=== PATIENT | female | born 1935 | race Caucasian/White ===

== ENCOUNTER 2020-11-06 01:07 | Inpatient (IN) ==
[2020-11-06] MEDS ORDERED: Naloxone 0.4 MG/ML INJ IVP PRN (03:02)
[2020-11-06] MEDS ORDERED: 0.9 % Sodium Chloride 1,000 ML IVC SCH (03:15)
[2020-11-06] MEDS: Ondansetron 4 MG/2 ML VIAL IVP PRN ×2 (03:22→14:52)
[2020-11-06 04:52] LABS: Bacteria,Urine Few per hpf (None-Few); Bilirubin,Urine Negative (Negative); Blood,Urine Negative (Negative); Clarity,Urine Turbid (Clear); Color,Urine Light-Yellow (Yellow); Glucose,Urine (UA) 50 mg/dL (Normal); Ketones,Urine Negative (Negative); Leukocyte Esterase,Urine Moderate (Negative); Mucus,Urine Few per lpf (None-Few); Nitrite,Urine Negative (Negative); PH,Urine 7.5 pH Units (5.0-8.0); Protein,Urine 50 mg/dL (Neg-Trace); RBC,Urine 15-30 per hpf (0-3); Specific Gravity,Urine 1.014 (1.010-1.025); Urobilinogen,Urine Normal (Normal); WBC,Urine 30-50 per hpf (0-3)
[2020-11-06 06:30] LABS: Basophils % 0.4 %; Eosinophils # 0.1 K/mcL (0.0-0.6); Eosinophils % 0.5 %; Hematocrit 35.8 % (35.3-44.9); Hemoglobin 12.4 g/dL (11.5-15.4); Immature Granulocytes % 0.8 % (0-4); Lymphocytes # 1.2 K/mcL (0.6-4.6); Lymphocytes % 13.4 %; Mean Corpuscular HGB Conc 34.6 g/dL (31.6-35.5); Mean Corpuscular Hemoglobin 31.4 pg (28.0-33.3); Mean Corpuscular Volume 90.6 fL (83.0-100.0); Mean Platelet Volume 8.3 fL (9.4-12.4); Monocytes # 0.5 K/mcL (0.0-1.3); Monocytes % 5.1 %; Neutrophils # 7.3 K/mcL (1.6-8.9); Platelet Count 194 K/mcL (140-400); Red Blood Count 3.95 M/mcL (3.82-4.97); Red Cell Distribution Width 15.9 % (11.5-14.5); Segmented Neutrophils % 79.8 %; White Blood Count 9.1 K/mcL (4.3-11.1)
[2020-11-06 06:43] LABS: INR 1.1; Prothrombin Time 12.7 Seconds (9.4-12.1)
[2020-11-06 06:46] LABS: Activated Partial Thrombo Time 31.8 Seconds (26.0-36.0)
[2020-11-06 07:50] LABS: Alanine Aminotransferase 13 Units/L (7-52); Albumin 3.6 g/dL (3.5-5.7); Albumin/Globulin Ratio 1.1 (1.1-2.2); Alkaline Phosphatase 67 Units/L (34-104); Aspartate Amino Transferase 21 Units/L (13-39); BUN/Creatinine Ratio 20 (6-26); Bilirubin,Total 0.8 mg/dL (0.3-1.0); Blood Urea Nitrogen 9 mg/dL (8-23); Calcium 8.8 mg/dL (8.6-10.3); Carbon Dioxide 25 mEq/L (23-29); Chloride 96 mEq/L (98-107); Globulin 3.4 g/dL (2.4-3.5); Glucose 151 mg/dL (70-105); Magnesium 1.6 mg/dL (1.6-2.6); Osmolality,Calculated 268 (280-300); Potassium 4.1 mEq/L (3.5-5.1); Sodium 128 mEq/L (136-145); Troponin I < 0.03 ng/mL (< 0.04); eGFR For African Americans > 60 (> 60); eGFR For Non-African Americans > 60 (> 60)
[2020-11-06] MEDS: cefTRIAXone 1,000 MG in 0.9 % Sodium Chloride Mini Bag 100 ML IVPB SCH (07:51)
[2020-11-06] MEDS ORDERED: Dextrose Gel 15 GM/37.5 ML TUBE PO PRN ×2 (09:00)
[2020-11-06] MEDS ORDERED: D5% in Water 1,000 ML IVC PRN (09:00)
[2020-11-06] MEDS ORDERED: *HR* Dextrose 50 % in Water (Vial) 50 ML VIAL IVP PRN (09:00)
[2020-11-06] MEDS ORDERED: Perflutren Lipid Microsphere 1.3 ML in 0.9 % Sodium Chloride 8.7 ML IVP PRN (12:36)
[2020-11-06] MEDS: Insulin LISPRO 300 UNITS/3 ML VIAL SUBQ SCH ×2 (12:51→17:26)
[2020-11-06 13:05] LABS: Basophils # 0.1 K/mcL (0.0-0.2); Basophils % 0.6 %; Eosinophils # 0.1 K/mcL (0.0-0.6); Eosinophils % 1.2 %; Hematocrit 34.1 % (35.3-44.9); Hemoglobin 11.8 g/dL (11.5-15.4); Immature Granulocytes % 1.5 % (0-4); Lymphocytes # 1.5 K/mcL (0.6-4.6); Lymphocytes % 17.4 %; Mean Corpuscular HGB Conc 34.6 g/dL (31.6-35.5); Mean Corpuscular Hemoglobin 31.5 pg (28.0-33.3); Mean Corpuscular Volume 90.9 fL (83.0-100.0); Mean Platelet Volume 8.9 fL (9.4-12.4); Monocytes # 0.4 K/mcL (0.0-1.3); Neutrophils # 6.4 K/mcL (1.6-8.9); Platelet Count 176 K/mcL (140-400); Red Blood Count 3.75 M/mcL (3.82-4.97); Red Cell Distribution Width 15.8 % (11.5-14.5); Segmented Neutrophils % 74.3 %; White Blood Count 8.6 K/mcL (4.3-11.1)
[2020-11-06 14:45] LABS: BUN/Creatinine Ratio 22 (6-26); Blood Urea Nitrogen 8 mg/dL (8-23); Calcium 8.5 mg/dL (8.6-10.3); Carbon Dioxide 15 mEq/L (23-29); Chloride 98 mEq/L (98-107); Glucose 127 mg/dL (70-105); Osmolality,Calculated 264 (280-300); Potassium 4.3 mEq/L (3.5-5.1); Sodium 127 mEq/L (136-145); eGFR For African Americans > 60 (> 60); eGFR For Non-African Americans > 60 (> 60)
[2020-11-06] MEDS: Metoprolol XL (24 HR) Succ 25 MG TAB.ER.24H PO SCH (14:46)
[2020-11-06 15:15] LABS: Alanine Aminotransferase 12 Units/L (7-52); Albumin 3.6 g/dL (3.5-5.7); Alkaline Phosphatase 67 Units/L (34-104); Aspartate Amino Transferase 21 Units/L (13-39); Bilirubin,Direct 0.2 mg/dL (0.0-0.2); Bilirubin,Indirect 0.6 mg/dL (0.0-1.0); Bilirubin,Total 0.8 mg/dL (0.3-1.0); Globulin 3.5 g/dL (2.4-3.5); Total Protein 7.1 g/dL (6.4-8.9); Troponin I < 0.03 ng/mL (< 0.04)
[2020-11-06 15:28] LABS: Thyroid Stimulating Hormone 0.578 mcIU/mL (0.340-5.600)
[2020-11-06 21:05] LABS: Basophils # 0.1 K/mcL (0.0-0.2); Basophils % 1.1 %; Eosinophils # 0.2 K/mcL (0.0-0.6); Eosinophils % 2.5 %; Hematocrit 32.2 % (35.3-44.9); Hemoglobin 10.8 g/dL (11.5-15.4); Immature Granulocytes % 0.7 % (0-4); Lymphocytes # 1.5 K/mcL (0.6-4.6); Lymphocytes % 19.4 %; Mean Corpuscular HGB Conc 33.5 g/dL (31.6-35.5); Mean Corpuscular Hemoglobin 30.9 pg (28.0-33.3); Mean Corpuscular Volume 92.3 fL (83.0-100.0); Mean Platelet Volume 8.3 fL (9.4-12.4); Monocytes # 0.5 K/mcL (0.0-1.3); Monocytes % 6.2 %; Neutrophils # 5.3 K/mcL (1.6-8.9); Platelet Count 195 K/mcL (140-400); Red Blood Count 3.49 M/mcL (3.82-4.97); Red Cell Distribution Width 15.9 % (11.5-14.5); Segmented Neutrophils % 70.1 %; White Blood Count 7.6 K/mcL (4.3-11.1)
[2020-11-07] MEDS: Insulin LISPRO 300 UNITS/3 ML VIAL SUBQ SCH ×5 (01:34→23:50)
[2020-11-07] MEDS: cefTRIAXone 1,000 MG in 0.9 % Sodium Chloride Mini Bag 100 ML IVPB SCH (07:20)
[2020-11-07] MEDS: Metoprolol XL (24 HR) Succ 25 MG TAB.ER.24H PO SCH (07:21)
[2020-11-07 10:31] LABS: BUN/Creatinine Ratio 28 (6-26); Blood Urea Nitrogen 14 mg/dL (8-23); Calcium 8.7 mg/dL (8.6-10.3); Carbon Dioxide 28 mEq/L (23-29); Chloride 96 mEq/L (98-107); Glucose 127 mg/dL (70-105); Osmolality,Calculated 264 (280-300); Potassium 4.2 mEq/L (3.5-5.1); Sodium 126 mEq/L (136-145); eGFR For African Americans > 60 (> 60); eGFR For Non-African Americans > 60 (> 60)
[2020-11-07] MEDS ORDERED: Povidone-Iodine 45 ML, Sodium Chloride IRRigation 1,000 ML IR ONE (12:00)
[2020-11-07] MEDS ORDERED: TOTAL JOINT MIXTURE (100ML) INTRAART ONE (12:00)
[2020-11-07] MEDS ORDERED: Ondansetron 4 MG/2 ML VIAL ONE (12:02)
[2020-11-07] MEDS ORDERED: Lidocaine HCL 4 ML Topical Solution (Laryng-O-Jet Kit Sterile Pak) TP ONE (12:02)
[2020-11-07] MEDS ORDERED: *HR* FentaNYL (PF) 100 MCG/2 ML VIAL ONE ×2 (12:02→13:51)
[2020-11-07] MEDS ORDERED: *HR* Succinylcholine 200 MG/10 ML VIAL IVP ONE (12:02)
[2020-11-07] MEDS ORDERED: Lidocaine -MPF 2% 2 ML VIAL ONE (12:02)
[2020-11-07] MEDS ORDERED: *HR* Rocuronium Bromide 50 MG/5 ML VIAL ONE (12:02)
[2020-11-07] MEDS ORDERED: *HR* Propofol 200 MG/20 ML VIAL IVP ONE (12:03)
[2020-11-07] MEDS ORDERED: ceFAZolin 2,000 MG in Water for inj. (sterile) 20 ML IVP ONE (13:26)
[2020-11-07] MEDS ORDERED: Tranexamic Acid 1,000 MG/10 ML VIAL ONE (13:28)
[2020-11-07] MEDS ORDERED: Neostigmine Methylsulfate 3 MG/3 ML SYRINGE ONE (14:20)
[2020-11-07] MEDS: CeFAZolin 2 GM/120 ML BAG IVPB SCH (20:39)
[2020-11-08] MEDS: CeFAZolin 2 GM/120 ML BAG IVPB SCH (05:02)
[2020-11-08] MEDS: Insulin LISPRO 300 UNITS/3 ML VIAL SUBQ SCH ×3 (05:14→20:29)
[2020-11-08 06:50] LABS: Hematocrit 25.5 % (35.3-44.9); Mean Corpuscular HGB Conc 34.1 g/dL (31.6-35.5); Mean Corpuscular Hemoglobin 31.6 pg (28.0-33.3); Mean Corpuscular Volume 92.7 fL (83.0-100.0); Mean Platelet Volume 8.7 fL (9.4-12.4); Platelet Count 192 K/mcL (140-400); Red Blood Count 2.75 M/mcL (3.82-4.97); Red Cell Distribution Width 15.9 % (11.5-14.5); White Blood Count 9.3 K/mcL (4.3-11.1)
[2020-11-08 06:51] LABS: Hemoglobin 8.7 g/dL (11.5-15.4)
[2020-11-08 07:03] LABS: BUN/Creatinine Ratio 34 (6-26); Blood Urea Nitrogen 20 mg/dL (8-23); Calcium 8.5 mg/dL (8.6-10.3); Carbon Dioxide 25 mEq/L (23-29); Chloride 98 mEq/L (98-107); Glucose 177 mg/dL (70-105); Osmolality,Calculated 273 (280-300); Potassium 4.8 mEq/L (3.5-5.1); Sodium 128 mEq/L (136-145); eGFR For African Americans > 60 (> 60); eGFR For Non-African Americans > 60 (> 60)
[2020-11-08] MEDS: Metoprolol XL (24 HR) Succ 25 MG TAB.ER.24H PO SCH (09:59)
[2020-11-08] MEDS: cefTRIAXone 1,000 MG in 0.9 % Sodium Chloride Mini Bag 100 ML IVPB SCH (10:00)
[2020-11-08] MEDS: Sennosides/Docusate Sodium TABLET PO SCH ×2 (15:14→20:10)
[2020-11-08] MEDS: polyethylene glycoL 3350 17 GM POWD.PACK PO SCH ×3 (15:14→20:12)
[2020-11-09] MEDS: Metoprolol XL (24 HR) Succ 25 MG TAB.ER.24H PO SCH (07:46)
[2020-11-09] MEDS: polyethylene glycoL 3350 17 GM POWD.PACK PO SCH ×2 (07:46→19:46)
[2020-11-09] MEDS: cefTRIAXone 1,000 MG in 0.9 % Sodium Chloride Mini Bag 100 ML IVPB SCH (07:46)
[2020-11-09] MEDS: Sennosides/Docusate Sodium TABLET PO SCH ×2 (07:46→19:46)
[2020-11-09] MEDS: Insulin LISPRO 300 UNITS/3 ML VIAL SUBQ SCH ×4 (07:47→19:38)
[2020-11-10 08:27] LABS: Hematocrit 21.7 % (35.3-44.9); Mean Corpuscular HGB Conc 32.3 g/dL (31.6-35.5); Mean Platelet Volume 8.5 fL (9.4-12.4); Platelet Count 200 K/mcL (140-400); Red Blood Count 2.26 M/mcL (3.82-4.97); Red Cell Distribution Width 16.1 % (11.5-14.5); White Blood Count 6.5 K/mcL (4.3-11.1)
[2020-11-10 08:50] LABS: BUN/Creatinine Ratio 64 (6-26); Blood Urea Nitrogen 25 mg/dL (8-23); Calcium 8.3 mg/dL (8.6-10.3); Carbon Dioxide 30 mEq/L (23-29); Chloride 100 mEq/L (98-107); Glucose 132 mg/dL (70-105); Osmolality,Calculated 282 (280-300); Potassium 4.4 mEq/L (3.5-5.1); Sodium 133 mEq/L (136-145); eGFR For African Americans > 60 (> 60); eGFR For Non-African Americans > 60 (> 60)
[2020-11-10] MEDS: cefTRIAXone 1,000 MG in 0.9 % Sodium Chloride Mini Bag 100 ML IVPB SCH (09:29)
[2020-11-10] MEDS: Metoprolol XL (24 HR) Succ 25 MG TAB.ER.24H PO SCH (09:29)
[2020-11-10] MEDS: Sennosides/Docusate Sodium TABLET PO SCH ×2 (09:29→20:30)
[2020-11-10] MEDS: polyethylene glycoL 3350 17 GM POWD.PACK PO SCH ×2 (09:29→20:30)
[2020-11-10] MEDS: Insulin LISPRO 300 UNITS/3 ML VIAL SUBQ SCH ×4 (09:31→20:34)
[2020-11-10 15:26] LABS: Hematocrit 20.6 % (35.3-44.9); Hemoglobin 6.9 g/dL (11.5-15.4); Mean Corpuscular HGB Conc 33.5 g/dL (31.6-35.5); Mean Corpuscular Hemoglobin 32.2 pg (28.0-33.3); Mean Corpuscular Volume 96.3 fL (83.0-100.0); Mean Platelet Volume 8.8 fL (9.4-12.4); Platelet Count 207 K/mcL (140-400); Red Blood Count 2.14 M/mcL (3.82-4.97); Red Cell Distribution Width 15.9 % (11.5-14.5); White Blood Count 6.2 K/mcL (4.3-11.1)
[2020-11-10] MEDS ORDERED: 0.9 % Sodium Chloride 250 ML IVC SCH (17:15)
[2020-11-11 01:20] LABS: Hematocrit 26.4 % (35.3-44.9)
[2020-11-11 01:22] LABS: Hemoglobin 8.9 g/dL (11.5-15.4)
[2020-11-11 03:57] VITALS: O2SAT 97
[2020-11-11] MEDS: cefTRIAXone 1,000 MG in 0.9 % Sodium Chloride Mini Bag 100 ML IVPB SCH (06:47)
[2020-11-11 08:17] VITALS: BP 156/75; PULSE 91; TEMP 98
[2020-11-11] MEDS: polyethylene glycoL 3350 17 GM POWD.PACK PO SCH (09:38)
[2020-11-11] MEDS: Sennosides/Docusate Sodium TABLET PO SCH (09:38)
[2020-11-11] MEDS: Insulin LISPRO 300 UNITS/3 ML VIAL SUBQ SCH ×2 (09:39→12:19)
[2020-11-11] MEDS: Metoprolol XL (24 HR) Succ 25 MG TAB.ER.24H PO SCH (09:40)
== END 2020-11-11 13:30 | DRG 481 ==
LOC: 3NENU → SUATTDRO 02:32
PROVIDERS: ADMIT Pharmacist; ATTEND Internal Medicine

== ENCOUNTER 2020-12-18 15:47 | Inpatient (IN) ==
[2020-12-18] MEDS ORDERED: Ondansetron 4 MG/2 ML VIAL IVP PRN (16:52)
[2020-12-18] MEDS ORDERED: Naloxone 0.4 MG/ML INJ IVP PRN (16:52)
[2020-12-18] MEDS: *HR* OxyCODONE Immed Rel 5 MG TABLET PO PRN ×2 (17:17→21:23)
[2020-12-18] MEDS ORDERED: GuaiFENesin Liq 200 MG/10 ML UDC PO PRN (17:50)
[2020-12-18 18:32] LABS: Basophils # 0.1 K/mcL (0.0-0.2); Basophils % 1.2 %; Eosinophils # 0.2 K/mcL (0.0-0.6); Eosinophils % 3.5 %; Hematocrit 35.8 % (35.3-44.9); Hemoglobin 12.1 g/dL (11.5-15.4); Immature Granulocytes % 0.2 % (0-4); Lymphocytes # 1.3 K/mcL (0.6-4.6); Mean Corpuscular HGB Conc 33.8 g/dL (31.6-35.5); Mean Corpuscular Volume 94.7 fL (83.0-100.0); Mean Platelet Volume 7.8 fL (9.4-12.4); Monocytes # 0.3 K/mcL (0.0-1.3); Monocytes % 5.3 %; Neutrophils # 4.2 K/mcL (1.6-8.9); Platelet Count 313 K/mcL (140-400); Red Blood Count 3.78 M/mcL (3.82-4.97); Red Cell Distribution Width 14.2 % (11.5-14.5); Segmented Neutrophils % 68.8 %; White Blood Count 6.1 K/mcL (4.3-11.1)
[2020-12-18 18:50] LABS: Estimated Average Glucose 91 mg/dl; Hemoglobin A1C 4.8 %
[2020-12-18] MEDS: *HR* Heparin 5,000 UNIT/ML VIAL SQ SCH (18:51)
[2020-12-18 18:52] LABS: BUN/Creatinine Ratio 43 (6-26); Blood Urea Nitrogen 20 mg/dL (8-23); Calcium 9.2 mg/dL (8.6-10.3); Carbon Dioxide 31 mEq/L (23-29); Chloride 96 mEq/L (98-107); Glucose 149 mg/dL (70-105); Magnesium 1.9 mg/dL (1.6-2.6); Osmolality,Calculated 275 (280-300); Phosphorous 3.8 mg/dL (2.7-4.5); Potassium 3.7 mEq/L (3.5-5.1); Sodium 130 mEq/L (136-145); eGFR For African Americans > 60 (> 60); eGFR For Non-African Americans > 60 (> 60)
[2020-12-19] MEDS ORDERED: Acetaminophen 325 MG TABLET PO ONE (00:02)
[2020-12-19] MEDS: *HR* Heparin 5,000 UNIT/ML VIAL SQ SCH (03:39)
[2020-12-19] MEDS ORDERED: Povidone-Iodine 45 ML, Sodium Chloride IRRigation 1,000 ML IR ONE (06:00)
[2020-12-19] MEDS ORDERED: TOTAL JOINT MIXTURE (100ML) INTRAART ONE (06:00)
[2020-12-19 06:23] LABS: Basophils # 0.1 K/mcL (0.0-0.2); Basophils % 1.2 %; Eosinophils # 0.2 K/mcL (0.0-0.6); Eosinophils % 3.2 %; Hematocrit 34.5 % (35.3-44.9); Hemoglobin 11.5 g/dL (11.5-15.4); Immature Granulocytes % 0.4 % (0-4); Lymphocytes % 29.2 %; Mean Corpuscular HGB Conc 33.3 g/dL (31.6-35.5); Mean Corpuscular Hemoglobin 31.5 pg (28.0-33.3); Mean Corpuscular Volume 94.5 fL (83.0-100.0); Mean Platelet Volume 8.2 fL (9.4-12.4); Monocytes # 0.4 K/mcL (0.0-1.3); Monocytes % 6.1 %; Neutrophils # 4.1 K/mcL (1.6-8.9); Platelet Count 309 K/mcL (140-400); Red Blood Count 3.65 M/mcL (3.82-4.97); Red Cell Distribution Width 14.3 % (11.5-14.5); Segmented Neutrophils % 59.9 %; White Blood Count 6.9 K/mcL (4.3-11.1)
[2020-12-19 06:38] LABS: Influenza A PCR Negative (Negative); Influenza B PCR Negative (Negative); Resp. Syncytial Virus PCR Negative (Negative)
[2020-12-19 06:39] LABS: SARS-CoV-2 by PCR (In House) Negative (Negative)
[2020-12-19 06:46] LABS: BUN/Creatinine Ratio 45 (6-26); Blood Urea Nitrogen 22 mg/dL (8-23); Calcium 9.1 mg/dL (8.6-10.3); Carbon Dioxide 31 mEq/L (23-29); Chloride 95 mEq/L (98-107); Glucose 99 mg/dL (70-105); Magnesium 1.9 mg/dL (1.6-2.6); Osmolality,Calculated 275 (280-300); Phosphorous 3.9 mg/dL (2.7-4.5); Sodium 131 mEq/L (136-145); eGFR For African Americans > 60 (> 60); eGFR For Non-African Americans > 60 (> 60)
[2020-12-19] MEDS ORDERED: *HR* FentaNYL (PF) 100 MCG/2 ML VIAL ONE (07:07)
[2020-12-19] MEDS ORDERED: Tranexamic Acid 1,000 MG/10 ML VIAL ONE ×2 (07:22→08:10)
[2020-12-19] MEDS ORDERED: Ethanol\\Acetic Acid\\Na Ace\\Ben 1,000 ML IRRIG.SOLN IR ONE (07:22)
[2020-12-19] MEDS ORDERED: Vancomycin 1,000 MG VIAL ONE (07:22)
[2020-12-19] MEDS ORDERED: Gentamicin 250 MG in 0.9 % Sodium Chloride 100 ML IVPB STA (07:44)
[2020-12-19] MEDS ORDERED: CeFAZolin Syr 2,000MG/20 ML 2,000 MG/20 ML SYRINGE IVPB STA (07:44)
[2020-12-19] MEDS ORDERED: Metoprolol XL (24 HR) Succ 25 MG TAB.ER.24H PO SCH (09:00)
[2020-12-19] MEDS ORDERED: polyethylene glycoL 3350 17 GM POWD.PACK PO SCH (09:00)
[2020-12-19] MEDS ORDERED: *HR* Phenylephrine 10 MG/ML VIAL ONE (09:04)
[2020-12-19] MEDS ORDERED: *HR* Propofol 200 MG/20 ML VIAL IVP ONE (10:34)
[2020-12-19] MEDS ORDERED: Ondansetron 4 MG/2 ML VIAL IVP PRN (11:17)
[2020-12-19] MEDS ORDERED: MOM Conc 10 ML UD.LIQ PO PRN ×2 (11:17→13:47)
[2020-12-19] MEDS ORDERED: Sennosides 8.6 MG TABLET PO PRN ×2 (11:17→13:47)
[2020-12-19] MEDS ORDERED: Naloxone 0.4 MG/ML INJ IVP PRN ×2 (11:17→13:47)
[2020-12-19] MEDS ORDERED: *HR* Promethazine 25 MG/ML VIAL IM PRN ×2 (11:17→13:47)
[2020-12-19] MEDS ORDERED: *HR* OxyCODONE Immed Rel 5 MG TABLET PO PRN (11:17)
[2020-12-19] MEDS ORDERED: Ringers Solution, Lactated 1,000 ML IVC SCH (11:30)
[2020-12-19] MEDS ORDERED: Ketorolac 15 MG/ML VIAL IVP SCH (12:00)
[2020-12-19] MEDS ORDERED: Albumin Human 5% 12.5 GM/250 ML IV.SOLN ONE (12:08)
[2020-12-19] MEDS ORDERED: Famotidine 20 MG/2 ML VIAL IVP STA (12:16)
[2020-12-19] MEDS ORDERED: Famotidine 20 MG/2 ML VIAL ONE (12:19)
[2020-12-19] MEDS ORDERED: ACETAMINOPHEN IVPB ONE (12:49)
[2020-12-19] MEDS: Ketorolac 30 MG/ML VIAL IVP SCH ×3 (14:29→23:44)
[2020-12-19] MEDS: *HR* OxyCODONE Immed Rel 5 MG TABLET PO PRN ×2 (15:46→21:14)
[2020-12-19] MEDS: Ascorbic Acid 500 MG TABLET PO SCH (15:46)
[2020-12-19] MEDS ORDERED: CeFAZolin 2 GM/120 ML BAG IVPB SCH (16:00)
[2020-12-19] MEDS: CeFAZolin 2 GM/120 ML BAG IVPB SCH ×2 (16:00→23:44)
[2020-12-19] MEDS ORDERED: Ascorbic Acid 500 MG TABLET PO SCH (17:00)
[2020-12-19] MEDS: MetroNIDAZOLE 500 MG/100 ML 500 MG/100 ML BAG IVPB SCH (23:44)
[2020-12-20] MEDS: *HR* OxyCODONE Immed Rel 5 MG TABLET PO PRN ×4 (01:47→22:49)
[2020-12-20] MEDS: Ketorolac 30 MG/ML VIAL IVP SCH ×3 (05:38→18:34)
[2020-12-20 07:16] LABS: Basophils # 0.1 K/mcL (0.0-0.2); Basophils % 0.8 %; Eosinophils # 0.1 K/mcL (0.0-0.6); Eosinophils % 1.8 %; Hematocrit 21.5 % (35.3-44.9); Immature Granulocytes % 0.5 % (0-4); Mean Corpuscular HGB Conc 34.4 g/dL (31.6-35.5); Mean Corpuscular Hemoglobin 32.7 pg (28.0-33.3); Mean Corpuscular Volume 95.1 fL (83.0-100.0); Mean Platelet Volume 8.6 fL (9.4-12.4); Monocytes # 0.3 K/mcL (0.0-1.3); Monocytes % 5.1 %; Platelet Count 201 K/mcL (140-400); Red Blood Count 2.26 M/mcL (3.82-4.97); Red Cell Distribution Width 14.4 % (11.5-14.5); Segmented Neutrophils % 75.8 %; White Blood Count 6.5 K/mcL (4.3-11.1)
[2020-12-20 07:17] LABS: Hemoglobin 7.4 g/dL (11.5-15.4)
[2020-12-20 07:39] LABS: BUN/Creatinine Ratio 40 (6-26); Blood Urea Nitrogen 23 mg/dL (8-23); Calcium 8.4 mg/dL (8.6-10.3); Carbon Dioxide 28 mEq/L (23-29); Chloride 98 mEq/L (98-107); Glucose 100 mg/dL (70-105); Osmolality,Calculated 274 (280-300); Potassium 4.6 mEq/L (3.5-5.1); Sodium 130 mEq/L (136-145); eGFR For African Americans > 60 (> 60); eGFR For Non-African Americans > 60 (> 60)
[2020-12-20] MEDS: Multivit/Ca/Min/Fe/FA 1 TAB TABLET PO SCH (08:00)
[2020-12-20] MEDS: MetroNIDAZOLE 500 MG/100 ML 500 MG/100 ML BAG IVPB SCH ×2 (08:01→15:25)
[2020-12-20] MEDS: Ascorbic Acid 500 MG TABLET PO SCH ×2 (08:01→18:29)
[2020-12-20] MEDS ORDERED: Multivit/Ca/Min/Fe/FA 1 TAB TABLET PO SCH (09:00)
[2020-12-20] MEDS ORDERED: Aspirin Enteric Coated 81 MG Tablet PO SCH ×2 (11:02→11:19)
[2020-12-20] MEDS: CeFAZolin 2,000 MG/120 ML BAG IVPB SCH ×2 (12:07→20:41)
[2020-12-20 18:44] LABS: Hematocrit 19.3 % (35.3-44.9); Hemoglobin 6.6 g/dL (11.5-15.4); Mean Corpuscular HGB Conc 34.2 g/dL (31.6-35.5); Mean Corpuscular Hemoglobin 32.7 pg (28.0-33.3); Mean Corpuscular Volume 95.5 fL (83.0-100.0); Mean Platelet Volume 8.2 fL (9.4-12.4); Platelet Count 152 K/mcL (140-400); Red Blood Count 2.02 M/mcL (3.82-4.97); Red Cell Distribution Width 14.5 % (11.5-14.5)
[2020-12-20] MEDS: Pantoprazole 40 MG in 0.9 % Sodium Chloride Mini Bag 100 ML IVC SCH (22:48)
[2020-12-20] MEDS: Ondansetron 4 MG/2 ML VIAL IVP PRN (22:48)
[2020-12-20] MEDS ORDERED: 0.9 % Sodium Chloride 250 ML ONE (23:23)
[2020-12-21] MEDS: Ketorolac 30 MG/ML VIAL IVP SCH (02:59)
[2020-12-21] MEDS: MetroNIDAZOLE 500 MG/100 ML 500 MG/100 ML BAG IVPB SCH ×3 (03:00→17:06)
[2020-12-21] MEDS: Pantoprazole 40 MG in 0.9 % Sodium Chloride Mini Bag 100 ML IVC SCH ×2 (03:10→09:12)
[2020-12-21] MEDS: CeFAZolin 2,000 MG/120 ML BAG IVPB SCH ×3 (04:11→20:45)
[2020-12-21 04:52] LABS: Hematocrit 22.6 % (35.3-44.9); Hemoglobin 7.8 g/dL (11.5-15.4)
[2020-12-21 04:54] LABS: Basophils % 0.4 %; Eosinophils # 0.3 K/mcL (0.0-0.6); Eosinophils % 5.2 %; Hematocrit 22.6 % (35.3-44.9); Hemoglobin 7.6 g/dL (11.5-15.4); Immature Granulocytes % 0.4 % (0-4); Lymphocytes # 0.8 K/mcL (0.6-4.6); Lymphocytes % 13.3 %; Mean Corpuscular HGB Conc 33.6 g/dL (31.6-35.5); Mean Corpuscular Hemoglobin 31.5 pg (28.0-33.3); Mean Corpuscular Volume 93.8 fL (83.0-100.0); Mean Platelet Volume 8.5 fL (9.4-12.4); Monocytes # 0.3 K/mcL (0.0-1.3); Neutrophils # 4.2 K/mcL (1.6-8.9); Platelet Count 179 K/mcL (140-400); Red Blood Count 2.41 M/mcL (3.82-4.97); Red Cell Distribution Width 14.6 % (11.5-14.5); Segmented Neutrophils % 74.7 %; White Blood Count 5.6 K/mcL (4.3-11.1)
[2020-12-21 05:08] LABS: BUN/Creatinine Ratio 43 (6-26); Blood Urea Nitrogen 20 mg/dL (8-23); Carbon Dioxide 26 mEq/L (23-29); Chloride 101 mEq/L (98-107); Glucose 104 mg/dL (70-105); Osmolality,Calculated 277 (280-300); Potassium 4.3 mEq/L (3.5-5.1); Sodium 132 mEq/L (136-145); eGFR For African Americans > 60 (> 60); eGFR For Non-African Americans > 60 (> 60)
[2020-12-21] MEDS ORDERED: *HR* Metoprolol 5 MG/5 ML VIAL IVP ONE (05:24)
[2020-12-21] MEDS ORDERED: 0.9 % Sodium Chloride 250 ML ONE (06:44)
[2020-12-21] MEDS: Ascorbic Acid 500 MG TABLET PO SCH ×2 (12:26→17:06)
[2020-12-21] MEDS: Multivit/Ca/Min/Fe/FA 1 TAB TABLET PO SCH (12:26)
[2020-12-21 12:44] LABS: Hemoglobin 9.5 g/dL (11.5-15.4)
[2020-12-21] MEDS: Pantoprazole 40 MG VIAL IVP SCH ×2 (17:06→20:45)
[2020-12-21] MEDS: Ringers Solution, Lactated 1,000 ML IVC SCH ×2 (19:35→19:36)
[2020-12-22] MEDS: *HR* OxyCODONE Immed Rel 5 MG TABLET PO PRN ×3 (00:12→20:57)
[2020-12-22] MEDS: MetroNIDAZOLE 500 MG/100 ML 500 MG/100 ML BAG IVPB SCH ×4 (00:13→23:36)
[2020-12-22] MEDS: CeFAZolin 2,000 MG/120 ML BAG IVPB SCH ×3 (04:52→20:59)
[2020-12-22 07:09] LABS: BUN/Creatinine Ratio 24 (6-26); Blood Urea Nitrogen 12 mg/dL (8-23); Calcium 8.1 mg/dL (8.6-10.3); Carbon Dioxide 27 mEq/L (23-29); Chloride 101 mEq/L (98-107); Glucose 78 mg/dL (70-105); Magnesium 1.7 mg/dL (1.6-2.6); Osmolality,Calculated 275 (280-300); Potassium 3.9 mEq/L (3.5-5.1); Sodium 133 mEq/L (136-145); eGFR For African Americans > 60 (> 60); eGFR For Non-African Americans > 60 (> 60)
[2020-12-22] MEDS ORDERED: Vancomycin 1,250 MG/262.5 ML IV.SOLN IVPB ONE (07:15)
[2020-12-22] MEDS: Ascorbic Acid 500 MG TABLET PO SCH ×2 (08:04→18:22)
[2020-12-22] MEDS: Multivit/Ca/Min/Fe/FA 1 TAB TABLET PO SCH (08:04)
[2020-12-22] MEDS: Ondansetron 4 MG/2 ML VIAL IVP PRN (08:43)
[2020-12-22] MEDS: Pantoprazole 40 MG VIAL IVP SCH ×2 (12:26→23:31)
[2020-12-22] MEDS ORDERED: *HR* Propofol 200 MG/20 ML VIAL IVP ONE (13:06)
[2020-12-22] MEDS ORDERED: Lidocaine -MPF 2% 5 ML VIAL ONE (13:06)
[2020-12-22 15:34] LABS: Hematocrit 30.9 % (35.3-44.9); Hemoglobin 10.4 g/dL (11.5-15.4); Mean Corpuscular HGB Conc 33.7 g/dL (31.6-35.5); Mean Corpuscular Hemoglobin 31.1 pg (28.0-33.3); Mean Corpuscular Volume 92.5 fL (83.0-100.0); Platelet Count 211 K/mcL (140-400); Red Blood Count 3.34 M/mcL (3.82-4.97); Red Cell Distribution Width 16.4 % (11.5-14.5); White Blood Count 6.2 K/mcL (4.3-11.1)
[2020-12-22] MEDS: Magnesium Oxide 400 MG TABLET PO SCH (20:58)
[2020-12-23] MEDS: CeFAZolin 2,000 MG/120 ML BAG IVPB SCH (03:23)
[2020-12-23 04:23] LABS: Hematocrit 26.4 % (35.3-44.9); Hemoglobin 9.1 g/dL (11.5-15.4); Mean Corpuscular HGB Conc 34.5 g/dL (31.6-35.5); Mean Corpuscular Hemoglobin 31.5 pg (28.0-33.3); Mean Corpuscular Volume 91.3 fL (83.0-100.0); Mean Platelet Volume 8.2 fL (9.4-12.4); Platelet Count 224 K/mcL (140-400); Red Blood Count 2.89 M/mcL (3.82-4.97); Red Cell Distribution Width 15.9 % (11.5-14.5); White Blood Count 5.7 K/mcL (4.3-11.1)
[2020-12-23 04:36] LABS: BUN/Creatinine Ratio 24 (6-26); Blood Urea Nitrogen 11 mg/dL (8-23); Calcium 7.8 mg/dL (8.6-10.3); Carbon Dioxide 27 mEq/L (23-29); Chloride 100 mEq/L (98-107); Glucose 100 mg/dL (70-105); Magnesium 1.6 mg/dL (1.6-2.6); Osmolality,Calculated 273 (280-300); Potassium 3.6 mEq/L (3.5-5.1); Sodium 132 mEq/L (136-145); eGFR For African Americans > 60 (> 60); eGFR For Non-African Americans > 60 (> 60)
[2020-12-23] MEDS: Multivit/Ca/Min/Fe/FA 1 TAB TABLET PO SCH (09:20)
[2020-12-23] MEDS: Ascorbic Acid 500 MG TABLET PO SCH ×2 (09:22→16:15)
[2020-12-23] MEDS: Magnesium Oxide 400 MG TABLET PO SCH (09:22)
[2020-12-23] MEDS: Pantoprazole 40 MG VIAL IVP SCH (09:23)
[2020-12-23] MEDS: MetroNIDAZOLE 500 MG/100 ML 500 MG/100 ML BAG IVPB SCH (09:48)
[2020-12-23] MEDS ORDERED: Vancomycin 1,250 MG/262.5 ML IV.SOLN IVPB SCH (10:00)
[2020-12-23 14:23] VITALS: BP 167/79; PULSE 69; TEMP 97.8; O2SAT 99
[2020-12-23 15:44] LABS: Bacteria,Urine Few per hpf (None-Few); Bilirubin,Urine Negative (Negative); Blood,Urine Negative (Negative); Clarity,Urine Clear (Clear); Color,Urine Yellow (Yellow); Glucose,Urine (UA) Normal (Normal); Ketones,Urine Negative (Negative); Leukocyte Esterase,Urine Trace (Negative); Nitrite,Urine Negative (Negative); PH,Urine 6.5 pH Units (5.0-8.0); Protein,Urine Negative (Neg-Trace); RBC,Urine 0-3 per hpf (0-3); Squamous Epithelial Cell,Urine Few per hpf (None-Few); Urobilinogen,Urine Normal (Normal)
[2020-12-23 16:36] LABS: Adenovirus Not Detected (Not Detect); Bordetella Pertussis Not Detected (Not Detect); Chlamydophila pneumoniae Not Detected (Not Detect); Coronavirus 229E Not Detected (Not Detect); Coronavirus HKU1 Not Detected (Not Detect); Coronavirus NL63 Not Detected (Not Detect); Coronavirus OC43 Not Detected (Not Detect); Human Metapneumovirus Not Detected (Not Detect); Human Rhinovirus/Enterovirus Not Detected (Not Detect); Influenza A Subtype 2009 H1 Not Detected (Not Detect); Influenza B Not Detected (Not Detect); Mycoplasma pneumoniae Not Detected (Not Detect); Parainfluenza Virus 1 Not Detected (Not Detect); Parainfluenza Virus 2 Not Detected (Not Detect); Parainfluenza Virus 3 Not Detected (Not Detect); Parainfluenza Virus 4 Not Detected (Not Detect); Respiratory Syncytial Virus Not Detected (Not Detect); SARS-CoV-2 Not Detected (Not Detect)
== END 2020-12-23 19:25 | DRG 469 ==
LOC: 3NENU
PROVIDERS: ADMIT Student in an Organized Health Care Education/Training Program; ATTEND Student in an Organized Health Care Education/Training Program
PROC: ENDOEBX (2020-12-22 12:45)